=== PATIENT | male | born 1960 | race Caucasian/White ===

== ENCOUNTER 2016-06-24 12:11 | Emergency (ER) | payer OTHER ==
[~2016-06-24] VITALS: Ht 177.8 cm; Wt 94.3 kg
[~2016-06-24 12:11] MED LIST: ATEN-41 PO; BENA20TA2 PO; HYDR25TA4 PO; LOP600 PO
[2016-06-24 12:15] VITALS: BP_SYST 134
[2016-06-24 13:45] LABS: BASOPHILS % (AUTO) 0.4 % (0.0-2.0); EOSINOPHILS # (AUTO) 0.2 K/uL (0.0-0.4); EOSINOPHILS % (AUTO) 2.7 % (0.0-4.0); HEMATOCRIT 39.4 % (36-54); HEMOGLOBIN 13.1 g/dL (14.0-18.0); LYMPHOCYTES # (AUTO) 1.4 K/uL (1.0-5.5); LYMPHOCYTES % (AUTO) 15.6 % (20.5-51.5); MEAN CORPUSCULAR HEMOGLOBIN 26 pg (27-31); MEAN CORPUSCULAR HGB CONC 33 % (32-36); MEAN CORPUSCULAR VOLUME 78 fL (79.0-98.0); MONOCYTES # (AUTO) 0.3 K/uL (0.0-1.0); MONOCYTES % (AUTO) 3.8 % (1.7-9.3); NEUTROPHILS # (AUTO) 7.1 K/uL (1.8-7.7); PLATELET COUNT (AUTO) 251 K/uL (130-430); RED BLOOD CELL COUNT(AUTO) 5.06 MIL/uL (4.2-6.2); RED CELL DISTRIBUTION WIDTH 17.8 % (9.0-15.0)
[2016-06-24 13:47] LABS: BILIRUBIN,URINE NEGATIVE (NEGATIVE); CLARITY/URINE CLEAR (CLEAR); COLOR,URINE YELLOW (YELLOW); GLUCOSE,URINE 3+ (NEGATIVE); KETONES,URINE TRACE (NEGATIVE); LEUKOCYTE ESTERASE ,URINE NEGATIVE (NEGATIVE); NITRITE, URINE NEGATIVE (NEGATIVE); PROTEIN URINE 2+ (NEGATIVE); UROBILINOGEN,URINE 0.2 (0.2-1.0)
[2016-06-24 13:56] LABS: ANION GAP 9 (5-15); CALCIUM 9.1 mg/dL (8.4-11.0); CHLORIDE 98 mmol/L (98-107); CREATININE 1.13 mg/dL (0.55-1.30); GLUCOSE 318 mg/dL (70-99); POTASSIUM 3.8 mmol/L (3.5-5.1); SODIUM SERUM 133 mmol/L (136-145); UREA NITROGEN, BLOOD 19 mg/dL (8-21)
[2016-06-24 13:58] LABS: GFR AFRICAN AMERICAN 87 mL/min (>90)
[2016-06-24 14:00] LABS: BLOOD, URINE TRACE (NEGATIVE)
[2016-06-24 14:01] LABS: ALANINE AMINOTRANSFERASE 34 U/L (12-78); ALBUMIN 3.5 g/dL (3.4-4.8); ASPARTATE AMINOTRANSFERASE 22 U/L (10-37); TOTAL BILIRUBIN 0.3 mg/dL (0.0-1.0); TOTAL PROTEIN, SERUM 7.5 g/dL (6.4-8.3)
[2016-06-24 14:09] LABS: BACTERIA,URINE RARE /HPF (None Seen); RBC,URINE 0-3 /HPF (0-3); WBC,URINE 0-3 /HPF (0-3)
[2016-06-24 14:18] LABS: NEUTROPHILS % (AUTO) 77.5 % (40.0-70.0)
[2016-06-24 14:22] LABS: ACETONE, SERUM SMALL (NEGATIVE)
[2016-06-24 16:20] VITALS: BP_SYST 134
== END 2016-06-24 16:20 | disposition home or self-care (01) ==
LOC: SED 12:11
DX: R73.9 Hyperglycemia, unspecified (principal); I10 Essential (primary) hypertension; Z96.659 Presence of unspecified artificial knee joint
CPT/HCPCS: 36415; 80053; 81000-TC; 82009-TC; 82962; 85025; 99284

== ENCOUNTER 2016-09-03 15:50 | Emergency (ER) | payer OTHER ==
[~2016-09-03] VITALS: Ht 177.8 cm; Wt 80.7 kg
[2016-09-03 16:10] VITALS: BP_SYST 136
[2016-09-03] MEDS ORDERED: METF-303 (16:15)
[2016-09-03] MEDS ORDERED: NACL 0.9% 1,000 ML IV ONE ×3 (16:30→18:00)
[2016-09-03] MEDS ORDERED: INSULIN REGULAR, HUMAN 10 UNITS/0.1 ML INJ IVP ONE ×2 (16:30→18:30)
[2016-09-03 16:36] LABS: HEMATOCRIT 44.3 % (36-54); HEMOGLOBIN 14.5 g/dL (14.0-18.0); MEAN CORPUSCULAR HEMOGLOBIN 28 pg (27-31); MEAN CORPUSCULAR HGB CONC 33 % (32-36); MEAN CORPUSCULAR VOLUME 86 fL (79.0-98.0); PLATELET COUNT (AUTO) 345 K/uL (130-430); RED BLOOD CELL COUNT(AUTO) 5.16 MIL/uL (4.2-6.2); RED CELL DISTRIBUTION WIDTH 15.4 % (9.0-15.0); WHITE BLOOD COUNT (AUTO) 9.5 K/uL (4.8-10.8)
[2016-09-03 16:40] LABS: BILIRUBIN,URINE NEGATIVE (NEGATIVE); BLOOD, URINE NEGATIVE (NEGATIVE); CLARITY/URINE CLEAR (CLEAR); COLOR,URINE YELLOW (YELLOW); GLUCOSE,URINE 3+ (NEGATIVE); KETONES,URINE TRACE (NEGATIVE); LEUKOCYTE ESTERASE ,URINE NEGATIVE (NEGATIVE); NITRITE, URINE NEGATIVE (NEGATIVE); PROTEIN URINE NEGATIVE (NEGATIVE); UROBILINOGEN,URINE 0.2 (0.2-1.0)
[2016-09-03 16:56] LABS: INR 0.9 (0.80-1.20); PROTHROMBIN TIME 10.1 SECS (9.5-12.5)
[2016-09-03 17:23] LABS: ALANINE AMINOTRANSFERASE 15 U/L (12-78); ALBUMIN 3.9 g/dL (3.4-4.8); ANION GAP 14 (5-15); CALCIUM 10.9 mg/dL (8.4-11.0); CHLORIDE 88 mmol/L (98-107); CREATININE 1.35 mg/dL (0.55-1.30); SODIUM SERUM 127 mmol/L (136-145); TOTAL BILIRUBIN 0.4 mg/dL (0.0-1.0); TOTAL PROTEIN, SERUM 8.6 g/dL (6.4-8.3); UREA NITROGEN, BLOOD 34 mg/dL (8-21)
[2016-09-03 17:27] LABS: GFR AFRICAN AMERICAN 71 mL/min (>90)
[2016-09-03 17:43] LABS: ACETONE, SERUM TRACE (NEGATIVE)
[2016-09-03 17:44] LABS: GLUCOSE 490 mg/dL (70-99)
[2016-09-03 18:06] LABS: RBC,URINE 0-3 /HPF (0-3); WBC,URINE 0-3 /HPF (0-3)
[2016-09-03 18:07] LABS: BACTERIA,URINE FEW /HPF (None Seen); MUCUS,URINE None Seen /LPF (None Seen)
[2016-09-03 18:12] LABS: ATYPICAL LYMPHOCYTES % 0 % (0-0); BAND % (MANUAL) 0 % (0-6); BASOPHILS % (MANUAL) 0 % (0-2); EOSINOPHILS % (MANUAL) 2 % (0-7); LYMPHOCYTES % (MANUAL) 27 % (20-46); MONOCYTES % (MANUAL) 8 % (0-11)
[2016-09-03 18:18] LABS: ASPARTATE AMINOTRANSFERASE 24 U/L (10-37)
[2016-09-03 20:09] VITALS: BP_SYST 136
== END 2016-09-03 20:09 | disposition home or self-care (01) ==
LOC: SED 15:50
DX: E11.65 Type 2 diabetes mellitus with hyperglycemia (principal); E86.0 Dehydration; I10 Essential (primary) hypertension
CPT/HCPCS: 36415; 71010; 80053; 81000; 82009; 82962; 84484; 85007; 85027; 85610; 85730; 87086; 93005; 96360; 96372; 99285; J1815; J7030